=== PATIENT | male | born 1930 | race Caucasian/White ===

== ENCOUNTER 2019-01-13 06:16 | Observation (INO) | payer OTHER ==
[~2019-01-13] VITALS: Ht 182.9 cm; Wt 78.5 kg
[~2019-01-13 06:16] MED LIST: ACETAMINOPHEN325 MG PO; ACETAMINOPHEN650 M5 PO; BENADRYL25 MG PO; DIPHENHYDRAMINE25 M3 PO; METOPROLOL SUCC25 M1 PO; PROSCAR 5MG TABL5 M1 PO; XARELTO15 MG PO; XARELTO20 MG PO; ZANTAC 150MG T150 M1 PO; ZESTRIL10 MG PO; ZESTRIL20 MG PO; ZOCOR 20 MG TAB20 M1 PO
[2019-01-13 06:55] VITALS: BP 154/86
[2019-01-13] MEDS ORDERED: PROTONIX40 M1 PO (07:03)
[2019-01-13 07:08] LABS: HEMATOCRIT 44.1 % (42.0-52.0); HEMOGLOBIN 15.1 gm/dL (14.0-18.0); MCH 33.2 pg (26.0-34.0); MCHC 34.2 g/dL (28.0-37.0); MCV 97.3 fL (80.0-100.0); PLATELET COUNT 142 thou/uL (150-400); RBC 4.53 mil/uL (4.50-6.00); RDW 14.3 % (10.5-14.5)
[2019-01-13 07:11] LABS: CALCIUM 9.9 mg/dL (8.5-10.1); POTASSIUM 4.4 mmol/L (3.5-5.1)
[2019-01-13 07:16] LABS: PROTIME 10.2 Seconds (9.3-11.4)
[2019-01-13 07:17] LABS: ALBUMIN 4.4 g/dL (3.4-5.0); TOTAL BILIRUBIN 1.1 mg/dL (<0.1-1.0); TOTAL PROTEIN 7.6 g/dL (6.4-8.2)
[2019-01-13 08:24] LABS: ABSOLUTE NEUTROPHILS 2.6 thou/uL (1.4-8.2); ANISOCYTOSIS SLIGHT
[2019-01-13 11:19] VITALS: BP 154/86
--- NOTE | 2019-01-13 11:32 | NUR ---
PT ORIENTED TO ROOM AND UNIT BED LOW AND LOCKED, SIDE RAILS UPX 3, CALL LIGHT IN REACH. PPM SITE ONLY SLIGHTLY OOZING RED BLOOD REINFORCE WITH 4X4. TELE APLLIED AND REVEAL PT IS AV PACED AT 60 BPM. PT WILL REMAIN HOB 45 DEGREES. WILL CONTINUE TO ASSESS.
--- NOTE | 2019-01-13 17:55 | NUR ---
PT UP TO BATHROOM SEVERAL TIMES AND UNABLE TO VOID. OBTAIN ORDER FOR DTRAIGHT CATH. WILL CONTINUE TO ASSESS.
[2019-01-13 21:04] VITALS: BP 121/63
[2019-01-13 23:55] VITALS: BP 143/89
[2019-01-14 04:00] VITALS: BP 133/85
--- NOTE | 2019-01-14 05:11 | NUR ---
PATIENT ALERT AND ORIENTED X4, NO COMPLAINTS OF PAIN. AV PACED ON PATENT EXAMINER. ON ROOM AIR, NO COMPLAINTS OF DIFFICULTY BREATHING. VOIDING PER URINAL. LEFT PACEMAKER SITE INTACT, SHOULDER IMMOBILIZER IN PLACE. AND PATIENT EDUCATED ON FALL PRECAUTIONS. NO SIGNS OF ACUTE DISTRESS NOTED AT THIS TIME. WILL CONTINUE TO MONITOR.
[2019-01-14 09:30] VITALS: BP 133/85
--- NOTE | 2019-01-14 10:50 | NUR ---
discharge instructions reviewed with patient and his /family. Peripheral IV's removed without complications. Incision intact. Amanda NOYOLA educated family on home device use.
[2019-01-14 11:36] VITALS: BP 133/85
--- NOTE | 2019-01-20 12:10 | P ---
[facility] [place] [address] PROCEDURE REPORT Name: ALEJANDRO ZAMAN Room #: 207-P [facility] Annelise Tovar#: [id number] Admission: 01/13/19 ������������������ Attend Phys: Willian Brewster MD Discharge: 01/14/19 ������������������ Date of : 32 Report #: [id number] THIS REPORT FOR: //name// CC: Liang Brewster BIVENTRICULAR PACEMAKER IMPLANTATION PREOPERATIVE DIAGNOSES: 1. Symptomatic bradycardia. 2. Sick sinus syndrome. 3. Left bundle-branch block. 4. Ejection fraction 40%. HISTORY: The patient is an 88-year-old male, with increased fatigue and shortness of breath, who has evidence of sick sinus syndrome as well as left bundle-branch block and a decreased ejection fraction of 40%. I anticipate 100% ventricular pacing and therefore, I have recommended that he undergo biventricular pacemaker implantation. ANESTHESIA: The patient underwent MAC anesthesia with no anesthesia related complications. DESCRIPTION OF PROCEDURE: The patient underwent informed consent. We discussed the details of the procedure including the risks, which include, but not limited to bleeding, infection, vascular damage, cardiac perforation and pneumothorax. He understood these risks and is willing to proceed. The patient was brought to the EP laboratory in fasting and unsedated state, prepped and draped in sterile fashion. A venogram was performed showing patency of the left axillary vein. The patient received IV antibiotics. Next, I injected lidocaine below the level of clavicle. Incision was made, pocket was created over the prepectoral fascia and access was obtained 3 times to the left axillary vein using the extrathoracic approach with sheath positioned in the modified Seldinger technique. Next, leads were positioned in the right ventricular apex, right atrial appendage both with adequate pacing and sensing thresholds. This leads were sutured to the prepectoral fascia. Next, a coronary sinus guide sheath was placed into the coronary sinus. This was achieved relatively easily. Venogram showed that he had a nice anterolateral branch. The LV lead was positioned into this branch. The most distal pacing configuration did have some phrenic nerve capture. Fortunately, the mid pacing configuration had no phrenic nerve capture and great pacing thresholds. The sheath was split and the lead remained in position. The lead was sutured to the prepectoral fascia. The device was connected to the leads and the pocket was irrigated with vancomycin and then closed in 2 layers with surgical glue placed to the outer skin layer. The patient awoke neurologically and hemodynamically intact. No complications and no significant bleeding. [facility] [address] [place] [address] PROCEDURE REPORT Name: ALEJANDRO ZAMAN Room #: 207-P [facility] Annelise HuongHuong#: [id number] Admission: 01/13/19 ������������������ Attend Phys: Willian Brewster MD Discharge: 01/14/19 ������������������ Date of : 32 Report #: [id number] The implanted device was a Medtronic model number W4DR01, serial number [id number]. The leads were all Medtronic. The atrial lead was a model number 5076, serial number [id number] with a P-wave of 1 millivolt, pacing impedance 475 ohms and a pacing threshold of 1.3 volts at 0.4 milliseconds. The RV lead was a model number 5076, serial number [id number]. This lead demonstrated a R-wave of 4.6 millivolts, pacing impedance of 703 ohms and pacing threshold 0.4 volts at 0.4 milliseconds. The LV lead was a [employer]genuitytronic model number 4598, 88 cm, serial number [id number]. The R waves were 4.3 millivolts, pacing impedance 513 ohms and the pacing threshold 0.5 volts at 0.4 milliseconds. The biventricular lead pacing configuration was LV2 to LV3. The device was programmed to the DDDR 60-130 mode. CONCLUSIONS: 1. Successful biventricular pacemaker implantation. 2. Satisfactory atrial, right ventricular and left ventricular pacing and sensing thresholds. ��������������������������������������������� <ELECTRONICALLY SIGNED> ���������������������������������������� By: Willian Brewster MD ��������������������������������������������� 01/20/19 1210 1508 0637 Willian Brewster MD /nt
== END 2019-01-14 11:21 | disposition home or self-care (01) ==
LOC: CATH 06:16 → 2N 10:59 → CATH 15:06 → ENTRNSPT 01-14 11:12 → EDTRNSPTSTS 01-14 11:21 → 2N 01-14 11:21
PROVIDERS: ADMIT Internal Medicine Cardiovascular Disease
DX: I49.5 Sick sinus syndrome (principal); I44.7 Left bundle-branch block, unspecified; I10 Essential (primary) hypertension; N40.0 Benign prostatic hyperplasia without lower urinary tract symptoms; M06.9 Rheumatoid arthritis, unspecified; I47.1 Supraventricular tachycardia; I25.10 Atherosclerotic heart disease of native coronary artery without angina pectoris; Z79.899 Other long term (current) drug therapy
CPT/HCPCS: 62110; 62900; 70005

== ENCOUNTER → 2019-04-15 | Outpatient (CLI) | payer OTHER ==
[~2019-04-15] MED LIST changes: +PROTONIX40 M1 PO
--- NOTE | 2019-04-15 14:14 | 2DMMODE ---
[facility] [place] [address] 2 D/M-MODE ECHOCARDIOGRAM Name: AUSTYNALEJANDRO E [facility] [id number] Admission: 04/15/19 Attend Phys: Rosalba Fortune Discharge: Date of : 32 Report #: [id number] THIS REPORT FOR: //name// APPROVED REPORT Study performed: 04/15/2019 11:30:22 EXAM: Comprehensive 2D, Doppler, and color-flow Echocardiogram Patient Location: Out-Patient Status: routine BSA: 2.00 HR: 79 bpm BP: 134/90 mmHg Rhythm: Pacemaker Other Information Study Quality: Good/low parasternal window Indications Pacemaker Hx: CAD, CM, arrhythmias, ablation. 2D Dimensions RVDd: 42.42 mm IVSd: 14.29 (7-11mm) LVOT Diam: 23.91 (18-24mm) LVDd: 47.53 mm PWd: 8.35 (7-11mm) LVDs: 39.25 (25-40mm) Aortic Root: 39.28 mm Volumes Left Atrial Volume (Systole) Single Plane 4CH: 59.64 mL Single Plane 2CH: 71.92 mL LA ESV Index: 35.00 mL/m2 Aortic Valve AoV Peak Jarvis.: 0.97 m/s AO Peak Gr.: 4.51 mmHg LVOT Max P.10 mmHg LVOT Max V: 0.72 m/s ARACELIS Vmax: 3.35 cm2 AI Vmax: 4.86 m/s AI [place]: 2.96 m/s2 AI PHT: 475.02 ms [facility] [place] [place] [address] 2 D/M-MODE ECHOCARDIOGRAM Name: ALEJANDRO ZAMAN Room #: REG [facility]#: [id number] Admission: 04/15/19 Attend Phys: Rosalba Fortune Discharge: Date of : 32 Report #: [id number] Mitral Valve E/A Ratio: 0.9 MV Decel. Time: 202.78 ms MV E Max Jarvis.: 0.61 m/s MV A Jarvis.: 0.68 m/s MV PHT: 58.81 ms IVRT: 93.43 ms Pulmonary Valve PV Peak Jarvis.: 0.89 m/s PV Peak Gr.: 3.20 mmHg Pulmonary Vein P Vein S: 0.48 m/s P Vein D: 0.29 m/s P Vein S/D Ratio: 1.66 Tricuspid Valve TR Peak Jarvis.: 2.56 m/s TR Peak Gr.: 26.29 mmHg Left Ventricle The left ventricle is normal size. Regional wall motion abnormalities are noted. Moderate basal septal hypertrophy is present. Left ventricular systolic function is moderately decreased. LVEF is 35-40%. Mild diastolic dysfunction is present (impaired relaxation pattern). Right Ventricle Right ventricle is at the upper limits of normal. Right ventricle is mildly hypokinetic. Pacemaker lead is present in the right ventricle. Atria Left atrium is mildly dilated. Right atrium is mildly dilated. Aortic Valve The aortic valve is normal in structure; mildly calcified. Mild to moderate aortic regurgitation. There is no aortic valvular stenosis. Mitral Valve Mitral valve leaflets are mildly thickened. At least moderate mitral regurgitation; eccentric jet. Tricuspid Valve The tricuspid valve is normal in structure. Mild tricuspid [facility] [place] [place] [address] 2 D/M-MODE ECHOCARDIOGRAM Name: AUSTYNALEJANDRO E Room #: PHOEBE Tovar#: [id number] Admission: 04/15/19 Attend Phys: Rosalba Fortune Discharge: Date of : 32 Report #: [id number] regurgitation. Estimated PAP is 26mmHg plus the right atrial pressure. Pulmonic Valve The pulmonary valve is normal in structure. Trace pulmonic regurgitation. Great Vessels Aortic root is mildly dilated. Ascending aorta is not well visualized. IVC is not well visualized. Pericardium There is no pericardial effusion. <Conclusion> The left ventricle is normal size. LVEF is 35-40%. Regional wall motion abnormalities are noted. Right ventricle is mildly hypokinetic. Pacemaker lead is present in the right ventricle. Left atrium is mildly dilated. Right atrium is mildly dilated. The aortic valve is normal in structure; mildly calcified. Mild to moderate aortic regurgitation. Mitral valve leaflets are mildly thickened. At least moderate mitral regurgitation; eccentric jet. The tricuspid valve is normal in structure. Mild tricuspid regurgitation. Estimated PAP is 26mmHg plus the right atrial pressure. The pulmonary valve is normal in structure. Trace pulmonic regurgitation. Aortic root is mildly dilated. There is no pericardial effusion. <ELECTRONICALLY SIGNED> By: Dru Gary MD 04/15/19 1414 1414 141 Dru Gary MD /INF
== END ==
LOC: CV 11:03
DX: I08.3 Combined rheumatic disorders of mitral, aortic and tricuspid valves (principal); I25.10 Atherosclerotic heart disease of native coronary artery without angina pectoris; I42.9 Cardiomyopathy, unspecified; Z88.2 Allergy status to sulfonamides

== ENCOUNTER 2021-01-05 23:44 | Inpatient (IN) | payer OTHER ==
[~2021-01-05] VITALS: Ht 188 cm; Wt 72.6 kg
--- NOTE | ~2021-01-05 | O ---
[facility] [place] [address] OPERATIVE REPORT Name: ALEJANDRO ZAMAN Room #: 200-I ADM IN M.R.#: [id number] Admission: 01/06/21 Attend Phys: Jacobo Hartman MD Discharge: Date of : 32 Report #: [id number] THIS REPORT FOR: cc: Liang Ojeda James L. DO Patterson,Ej Garcia MD ~ DATE OF SERVICE: 01/10/2021 PREOPERATIVE DIAGNOSIS: Lymphoma. POSTOPERATIVE DIAGNOSIS: Lymphoma. OPERATION: 1. Right internal jugular vein Port-A-Cath. 2. Ultrasound guidance for right internal jugular vein Port-A-Cath. 3. Fluoroscopic interpretation for Port-A-Cath. SURGEON: Ej Rose MD ANESTHESIA: General. ESTIMATED BLOOD LOSS: Minimal. SPECIMENS: None. DESCRIPTION OF PROCEDURE: After informed consent was obtained, the patient was brought to the operating room and placed supine. SCDs were placed and working, preoperative antibiotics were administered, general anesthesia was induced. The right neck and chest were prepped and draped in the usual sterile fashion. The right internal jugular vein was evaluated with ultrasound. It was normal in size. There was no thrombus. Right internal jugular vein was cannulated under direct vision. A wire was placed. A 2 cm incision was made in the right chest. Dissection was carried down to the fascia. The catheter was then tunneled from the chest site to the neck site. Dilator with a sheath was placed. Catheter was then placed into the sheath as the sheath was peeled away. Catheter was then pulled back to 26.5 cm. It was cut and then it was connected to the reservoir. Beacon was secured to the underlying fascia with a 2-0 Prolene stitch. The skin was then closed with 4-0 Monocryl. Placement of the wire and dilator in the SVC was confirmed with fluoroscopy. The incisions were dressed with Steri-Strips and gauze. Sterile dressings were applied. [address] [address] OPERATIVE REPORT Name: AUSTYNALEJANDRO Giovanny Room #: 200-I [facility].#: [id number] Admission: 01/06/21 Attend Phys: Jacobo Hartman MD Discharge: Date of : 32 Report #: [id number] COMPLICATIONS: None. DISPOSITION: The patient was taken to recovery in satisfactory condition. By: [id number] Ej Rose MD /nt
[2021-01-06 00:13] VITALS: BP 123/88
--- NOTE | 2021-01-06 00:14 | NUR ---
PT IS AN ADMIT FROM [facility] HAS A HISTORY OF LYOMPHOMA CANCER. NOT MUCH OF AN APETETE HE REPORTS LATELY. SKIN IS INTACT PALE NO WOUNDS NOTED UPON SKIN ASSESSMENT. HE IS PLEANASANT AND KIND WISHES TO BE A NO CODE HE REPORTED AT THIS TIME. HE REPORTS THAT THE CHEMO DRUG THEY HAVE BEEN USING IS HARD ON HIS BODY. I SAID SOMETIMES ITS LIKE THAT WITH CHEMO DRUNGS FOR TREATMENT. WILL CONTINUE TO MONITOR AND ASSESS PER NURSING.
[2021-01-06 04:18] VITALS: BP 116/85
[2021-01-06 04:31] LABS: HEMATOCRIT 38.4 % (42.0-52.0); HEMOGLOBIN 12.6 gm/dL (14.0-18.0); MCH 33.7 pg (26.0-34.0); MCHC 32.8 g/dL (28.0-37.0); MCV 102.5 fL (80.0-100.0); RBC 3.75 mil/uL (4.50-6.00); RDW 19.2 % (10.5-14.5); WBC 37.2 thou/uL (4.0-11.0)
[2021-01-06 04:36] LABS: CREATININE 1.2 mg/dL (0.7-1.3); MAGNESIUM 2.1 mg/dL (1.8-2.4); POTASSIUM 4.9 mmol/L (3.5-5.1)
[2021-01-06 07:59] VITALS: BP 120/86
--- NOTE | 2021-01-06 10:52 | 2DMMODE ---
[facility] [place] [address] 2 D/M-MODE ECHOCARDIOGRAM Name: ALEJANDRO ZAMAN Room #: 200-I ADM IN M.R.#: [id number] Admission: 01/06/21 Attend Phys: Jacobo Hartman MD Discharge: Date of : 32 Report #: [id number] THIS REPORT FOR: cc: Liang Ojeda James L. DO Park, Jin S. MD ~ APPROVED REPORT Study performed: 01/06/2021 09:11:20 EXAM: Comprehensive 2D, Doppler, and color-flow Echocardiogram Patient Location: Bedside Room #: 200 Status: on-call BSA: 1.99 HR: 100 bpm BP: 120/86 mmHg Rhythm: Irregular/LBBB Other Information Study Quality: Adequate Technically limited study due to patient sitting up in bed, coughing, thin body habitus.. Indications Short of breath, palpitations, Afib. Hx: Non-obstructive CAD, Pacemaker 2D Dimensions IVSd: 15.50 (7-11mm) LVOT Diam: 21.78 (18-24mm) LVDd: 49.70 mm PWd: 8.64 (7-11mm) LVDs: 42.87 (25-40mm) Left Atrium: 40.33 (27-40mm) Aortic Root: 37.99 mm Aortic Valve AoV Peak Jarvis.: 1.06 m/s AO Peak Gr.: 4.52 mmHg LVOT Max P.95 mmHg LVOT Max V: 0.70 m/s ARACELIS Vmax: 2.44 cm2 Tricuspid Valve TR Peak Jarvis.: 2.84 m/s [facility] [address] [place] [address] 2 D/M-MODE ECHOCARDIOGRAM Name: ALEJANDRO ZAMAN Room #: 200-I [facility]#: [id number] Admission: 01/06/21 Attend Phys: Jacobo Hartman MD Discharge: Date of : 32 Report #: [id number] Peak Gr.: 32.16 mmHg Left Ventricle The left ventricle is normal size. Moderate basal septal hypertrophy is present. Left ventricular systolic function is severely decreased. LVEF is 25-30%. This study is not technically sufficient to allow evaluation of the LV diastolic function. Right Ventricle The right ventricle is normal size. The right ventricular systolic function is normal. Pacemaker lead is present in the right ventricle. Atria Left atrium is mildly dilated. The right atrium size is normal. Aortic Valve The Aortic valve is sclerotic. Mild to moderate aortic regurgitation. There is no aortic valvular stenosis. Mitral Valve The mitral valve is normal in structure. Severe mitral regurgitation. Tricuspid Valve The tricuspid valve is normal in structure. Moderate tricuspid regurgitation. Estimated PAP is 32mmHg plus the right atrial pressure. Pulmonic Valve Pulmonic valve is not well visualized. Trace pulmonic regurgitation. Great Vessels Aortic root is borderline dilated. Ascending aorta is not well visualized. IVC is poorly visualized. Pericardium There is no pericardial effusion. <Conclusion> The left ventricle is normal size. Left ventricular systolic function is severely decreased. The right ventricle is normal size. Pacemaker lead is present in the right ventricle. Left atrium is mildly dilated. [facility] [address] [place] [address] 2 D/M-MODE ECHOCARDIOGRAM Name: ALEJANDRO ZAMAN Room #: 200-I ADM IN [facility]#: [id number] Admission: 01/06/21 Attend Phys: Jacobo Hartman MD Discharge: Date of : 32 Report #: [id number] The Aortic valve is sclerotic. Mild to moderate aortic regurgitation. Severe mitral regurgitation. Moderate tricuspid regurgitation. Estimated PAP is 32mmHg plus the right atrial pressure. <ELECTRONICALLY SIGNED> By: Karthikeyan Downey MD 01/06/21 105 50 50 Karthikeyan Downey MD /INF
--- NOTE | 2021-01-06 11:02 | EKG ---
[address] [address] ELECTROCARDIOGRAM REPORT Name: ALEJANDRO ZAMAN Room #: 200-I ADM IN M.R.#: [id number] Admission: 01/06/21 Attend Phys: Jacobo Hartman MD Discharge: Date of : 32 Report #: [id number] [facility] Test Date: 2021-01-06 Test Time: 02:32:09 Pat Name: ALEJANDRO ZAMAN Department: Room: 200 I Gender: M Lead Bi Developer: SUNNY MERCADO RN : 1930 Requested By: Karyna Katz Order Number: [id number] MD: Karthikeyan Downey Measurements Intervals [place] Rate: 110 P: AK: QRS: -27 QRSD: 153 T: 137 QT: 394 QTc: 534 Interpretive Statements Atrial fibrillation Left bundle branch block Compared to ECG 10/13/2013 13:50:25 Sinus rhythm no longer present Left-axis deviation no longer present Electronically Signed On 01-06-2021 11:02:16 CDT by Karthikeyan Downey [email or web address] <ELECTRONICALLY SIGNED> By: Karthikeyan Downey MD 01/06/21 1102 1 0232 MD IMELDA Sutton
[2021-01-06 12:01] VITALS: BP 138/80
--- NOTE | 2021-01-06 14:47 | NUR ---
INFORM DR. LOMAS THAT ONCOLOGY WOULD LIKE A IMPLANTED PORT PLACED BEFORE PT LEAVES HOSPITAL.
--- NOTE | 2021-01-06 16:04 | NUR ---
ONCOLOGY AND CARDIOLOGY CONSULT TODAY. PT TAKING IN GOOD PO AND DENIES PAIN. ADMINISTRATION OK FOR SPOUSE TO SPEND NIGHT.
[2021-01-06 16:27] VITALS: BP 107/71
[2021-01-06 19:04] VITALS: BP 98/69
--- NOTE | 2021-01-06 19:43 | NUR ---
set bed alarm for the evining with spouse speniding night.
[2021-01-07 03:13] VITALS: BP 121/84
[2021-01-07 07:10] VITALS: BP 130/90
--- NOTE | 2021-01-07 08:07 | NUR ---
PT DENIED CHEST PAIN OR PALPITATIONS, OR LIGHTHEADEDNESS. CONTINUED TO HAVE INTERMIT TELE ALARMS FOR HIGH RATE OR VTACH WHEN PACER SPIKES DIDN'T FIRE. NO OTHER CONCERNS, PT STABLE AT SHIFT CHANGE.
--- NOTE | 2021-01-07 10:57 | EKG ---
[place] [address] [employer] [place] [address] ELECTROCARDIOGRAM REPORT Name: ALEJANDRO ZAMAN Room #: 200-I ADM IN M.R.#: [id number] Admission: 01/06/21 Attend Phys: Jacobo Hartman MD Discharge: Date of : 32 Report #: [id number] [facility] Test Date: 2021-01-07 Test Time: 08:11:27 Pat Name: ALEJANDRO ZAMAN Department: Room: 200 I Gender: M Ct Scan Technician: WALESKA : 1930 Requested By: Jacobo Hartman Order Number: [id number] MD: Karthikeyan Downey Measurements Intervals [place] Rate: 132 P: 0 AL: QRS: -28 QRSD: 149 T: 141 QT: 376 QTc: 557 Interpretive Statements Atrial fibrillation with demand ventricular pacing No further rhythm analysis attempted due to paced rhythm Left bundle branch block Compared to ECG 01/06/2021 02:32:09 Atrial fibrillation no longer present Electronically Signed On 01-07-2021 10:57:52 CDT by Karthikeyan Downey [email or web address] <ELECTRONICALLY SIGNED> By: Karthikeyan Downey MD 01/07/21 1057 0 0 Karthikeyan Downey MD /ANGELINA
[2021-01-07 11:12] VITALS: BP 99/72
[2021-01-07 16:03] VITALS: BP 100/67
--- NOTE | 2021-01-07 18:22 | NUR ---
PT ALERT AND ORIENTED. SEEN BY DR. RAMIREZ. NEW ORDERS NOTED. PT DENIED ANY PAIN OR DISCOMFORT. NO CONCERNS AT THIS TIME.
[2021-01-07 19:31] VITALS: BP 117/68
[2021-01-07 23:58] VITALS: BP 119/82
[2021-01-08 03:16] LABS: HEMOGLOBIN 12.4 gm/dL (14.0-18.0); MCH 33.9 pg (26.0-34.0); RBC 3.65 mil/uL (4.50-6.00)
[2021-01-08 03:18] LABS: CALCIUM 8.5 mg/dL (8.5-10.1); CREATININE 1.3 mg/dL (0.7-1.3); POTASSIUM 3.8 mmol/L (3.5-5.1)
[2021-01-08 03:19] LABS: HEMATOCRIT 36.9 % (42.0-52.0); MCHC 33.6 g/dL (28.0-37.0)
[2021-01-08 03:26] LABS: WBC 41.8 thou/uL (4.0-11.0)
[2021-01-08 04:43] VITALS: BP 1125/69; BP 125/69
[2021-01-08 07:10] VITALS: BP 119/78
--- NOTE | 2021-01-08 07:30 | NUR ---
ASSUMED CARE OF PT AT 1900, PT A/O X 4. ASSESSMENT COMPLETED NOTED. PT DENIES CP, SOA, OR DIZZINESS. WILL CONTINUE TO WORK TOWARDS POC T/O SHIFT.
--- NOTE | 2021-01-08 07:31 | NUR ---
Assumed care of this patient from the night nurse.
[2021-01-08 11:00] VITALS: BP 85/56
--- NOTE | 2021-01-08 12:01 | NUR ---
INITIAL ASSESSMENT: SW reviewed chart and spoke with attending physician. Pt was transferred to [facility] from [facility] due to chest pain. Cardiology consulted. Pt is on IV lasix and plan is for pt to have a cardiac cath tomorrow morning. 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 SW met with pt and at bedside. Introduced role of SW. Pt is alert/orientated x 4. Pt and spouse live in their home near [place]. 3 steps to enter from the backyard. No steps inside. Prior to admission, pt was independent with ADLs. No use of DME. No hx of HH services or post-acute placement. Pt's PCP is Dr. Varinder Shin in [place]. Pt and spouse deny having any needs at time of discharge. PT/OT evals ordered today to assist with recommendations for discharge needs. Plan is for pt to discharge home. SW is following to assist as needed with discharge planning.
[2021-01-08 15:30] VITALS: BP 88/59
--- NOTE | 2021-01-08 18:11 | NUR ---
PATIENT IS SLOWLY PROGRESSING TOWARDS OUTCOME GOALS HE WAS EVALUATED BY OT AND PT TODAY AND AMBULATED AROUND THE UNIT. PATIENT AND EDUCATION ON CARDIAC CATH FOR TOMORROW. QUESTIONS ADDRESSED AND REASSURANCE GIVEN.
[2021-01-08 19:12] VITALS: BP 114/79
[2021-01-09] VITALS (11 sets, daily range): BP systolic 87–114; BP diastolic 53–81
[2021-01-09 09:05] LABS: BE(vivo) -0.3 mmol/L (-2 to +3); HCO3 24.1 mmol/L (22.0-26.0); PCO2 38.4 mmHg (35.0-45.0); PO2 88.6 mmHg (80.0-100.0); pH 7.415 (7.360-7.450); sO2 96.9 % (92.0-98.0)
[2021-01-09 09:05] LABS: BE(vivo) -0.4 mmol/L (-2 to +3); HCO3 23.9 mmol/L (22.0-26.0); PCO2 VENOUS 37.9 mmHg (41.0-51.0); PO2 VENOUS 29.3 mmHg (35.0-45.0)
--- NOTE | 2021-01-09 10:59 | NUR ---
SW reviewed chart and spoke with nursing and attending physician. Pt had cardiac cath this morning. Anticipate pt will be ready to discharge home tomorrow. Therapy to work with pt again prior to discharge. Plan is for pt to discharge home when medically stable. CONNIE is following to assist as needed with discharge planning.
[2021-01-09 16:03] LABS: INR 1.05; PROTIME 11.4 Seconds (10.5-12.1)
--- NOTE | 2021-01-09 16:15 | CATHLAB ---
[facility] [place] [address] INVASIVE PROCEDURE REPORT Name: ALEJANDRO ZAMAN Room #: 200-I ADM IN .R.#: [id number] Admission: 01/06/21 Attend Phys: Jacobo Hartman MD Discharge: Date of : 32 Report #: [id number] THIS REPORT FOR: cc: Liang Ojeda James L. DO Park, Jin S. MD ~ APPROVED REPORT Study performed: 01/09/2021 08:02:57 Patient Details Patient Status: In-Patient Room #: 200 The patient is a 89 year-old male Event Personnel Karthikeyan Downey Draw String Knotter, Demetris Mejia RTR Monitor, Natasha Castillo RTR Scrub, Layla Rose RN therapeutic case manager Performed Art Access - R femoral artery* Casper Access - R femoral vein Hemostasis with Manual pressure 50689 Initial Mod Sed Same Phys/QHP Gr5y 111658 16854 Mod Sed Same Phys/QHP Ea [id number] Right and Left Heart Cath w/or w/o Coronarie [id number] [facility] Indication CHF Current Status: , Atrial fibrillation, Cardiomyopathy, Valvular heart disease Risk Factors Hypercholesterolemia, Coronary Artery DiseaseHypertension Procedure Narrative The Right Groin^ was infiltrated with 1% Lidocaine subcutaneous anesthesia. A PINNACLE 4FR Sheath #[id number] sheath was inserted into the RFA^. Coronary angiography was performed using coronary diagnostic catheters. The right coronary system was accessed and visualized with a JR4 catheter. The left coronary system was accessed and visualized with a JL5 catheter. The left ventricle was accessed and visualized with a PIGTAIL catheter. Left ventricular/Aortic Valve gradient assessed via catheter pullback. Left ventriculogram was performed in 30 degree projection. Hemostasis was obtained with manual pressure following sheath removal without any complications. The patient tolerated the procedure well and there were no complications associated with the procedure. There was no hematoma. A [facility] [place] [address] INVASIVE PROCEDURE REPORT Name: AUSTYNALEJANDRO Giovanny Room #: 200-I [facility] IN ..#: [id number] Admission: 01/06/21 Attend Phys: Jacobo Hartman MD Discharge: Date of : 32 Report #: [id number] Oklee sheath was inserted into the RFV. A [place] catheter was inserted and right heart pressures were obtained. Intraoperative Conscious Sedation Sedation start time: 837 Case end Time: 931 Fentanyl 25 mcg Versed 0.5 mg Fluoro Time: 5.50 minutes Dose: DAP 6390.60 cGycm2 732 mGy Contrast Type and Amount: Visipaque 75 ml Coronary Angiography The patient's coronary anatomy is right dominant. Diagnostic Cath Left Main The left main artery is a large-caliber vessel, patent with no flow-limiting lesions. LAD The LAD is a moderate-sized caliber vessel, traverses the anterior wall and wraps around the apex. There is mild disease in the proximal segment, 20%. Diagonal 1 This is a moderate-sized caliber vessel, patent with no flow-limiting lesions. Circumflex The left circumflex artery is a moderate-sized caliber vessel with mild diffuse disease proximally, 20%. OM1 This is a moderate-sized caliber vessel, patent with no flow-limiting lesions. OM2 This is a moderate-sized caliber vessel, patent with no flow-limiting lesions. Right Coronary The RCA is a moderate-sized caliber vessel, with mild disease in the midsegment, 20%. R PDA This is a small to moderate-sized caliber vessel, patent with no flow-limiting lesions. RPLV This is a small to moderate-sized caliber vessel, patent with no flow-limiting lesions. Left Ventriculography The left ventricle is mildly dilated in size with Decreased contractility. The left ventricular ejection fraction is estimated to be 25-30%. Hemodynamics The right atrial mean pressure is 6 mmHg. The right ventricular pressure is 19/2 mmHg. The pulmonary artery pressure is 18/6 mmHg with a mean of 12 mmHg. The mean pulmonary capillary wedge pressure is 5 mmHg. The aortic pressure is 89/38 mmHg with a mean of 54 mmHg. [facility] [address] [place] [address] INVASIVE PROCEDURE REPORT Name: ALEJANDRO ZAMAN Giovanny Room #: 200-I ADM IN M.R.#: [id number] Admission: 01/06/21 Attend Phys: Jacobo Hartman MD Discharge: Date of : 32 Report #: [id number] The left ventricular pressure is 83/5 mmHg with a mean of mmHg. The left ventricular end diastolic pressure is 6 mmHg. Pullback from the left ventricle to the aorta revealed a mm gradient across the aortic valve. PaO2 saturation is 63.10 %. Arterial saturation is 95.20 %. The cardiac output using the Willie method is 4.45 L/min. The cardiac index using the Willie method is 2.30 L/min/m2. Conclusion 1. There is mild, nonobstructive disease in the epicardial vessels. 2. There is severe global LV dysfunction. 3. Right-sided cardiac pressures as listed. 4. Recommend guideline directed medical therapy. <ELECTRONICALLY SIGNED> By: Karthikeyan Downey MD 01/09/21 1615 1615 1615 Karthikeyan Downey MD /INF
--- NOTE | 2021-01-09 18:33 | NUR ---
PT IS AXOX4, PLEASANT; VSS, AFEBRILE, VPACED ON MONITOR. PT WENT TO [employer] SUPERINTENDENT IN AM; NO INTERVENTIONS COMPLETED. DR REILLY CONSULTED, DR RICHARD CONSULTED. PT TO HAVE PORTACATH PLACED IN AM. PT DENIES PAIN. R GROIN DRY AND INTACT, WITH SMALL SPOT, CIRCLED, STAYED THE SAME SIZE THROUGHOUT AFTERNOON. CONSENT FOR PROCEDURE IN CHART. FALL PRECAUTIONS IN PLACE. NO CONCERNS AT THIS TIME.
[2021-01-10 04:13] VITALS: BP 122/75
[2021-01-10 04:28] LABS: CALCIUM 8.8 mg/dL (8.5-10.1); CREATININE 1.1 mg/dL (0.7-1.3); POTASSIUM 4.5 mmol/L (3.5-5.1)
[2021-01-10 04:34] LABS: RBC 3.95 mil/uL (4.50-6.00)
[2021-01-10 04:36] LABS: HEMATOCRIT 39.9 % (42.0-52.0); HEMOGLOBIN 13.6 gm/dL (14.0-18.0); MCH 34.4 pg (26.0-34.0); MCHC 34.1 g/dL (28.0-37.0); MCV 100.8 fL (80.0-100.0); RDW 18.1 % (10.5-14.5)
--- NOTE | 2021-01-10 05:23 | NUR ---
patients cares were assumed at shift change. patient was assessed and meds were passed. call that wbc is still critical however continues in a downward trend. patient is npo for a portacath placement this morning. patiet continues to progress towads discharge. rounds were done. remains at the bedside.
[2021-01-10 09:31] VITALS: BP 145/84
[2021-01-10 11:20] VITALS: BP 90/64
[2021-01-10 15:25] VITALS: BP 105/75
--- NOTE | 2021-01-10 18:11 | NUR ---
PATIENT PROGRESSING TOWARDS DISMISSAL GOALS. PATIENT NPO AT MIDNIGHT. PATIENT SPOUSE AT BEDSIDE DURING THE DAY. ISABELLA CATH PLACED THIS MORNING. VSS.
[2021-01-10 20:11] VITALS: BP 110/67
[2021-01-11 04:45] VITALS: BP 119/68
--- NOTE | 2021-01-11 05:49 | NUR ---
Pt. rested quietly during the night when checked on during frequent rounds. He offer no c/o shortness of air or chest pain.
[2021-01-11] MEDS ORDERED: PACERONE 200 M200 M1 PO (09:00)
[2021-01-11] MEDS ORDERED: ATENOLOL 50MG T50 MG PO (09:00)
[2021-01-11] MEDS ORDERED: XARELTO20 MG PO (09:00)
[2021-01-11] MEDS ORDERED: CARVEDILOL12.5 MG PO (09:06)
--- NOTE | 2021-01-11 09:19 | NUR ---
0872-PT WAS BROUGHT DOWN TO CV HOLDING AREA, TIME OUT TAKEN WITH . PT VSS THROUGHOUT PROCEDURE, PT SEDATED WITHOUT COMPLICATION, MINIMAL SUCTION NEEDED. BUBBLE STUDY DONE AND PT SHOCKED AT 75J X1 AND NSR PRESENT POST PROCEDURE. [employer] REP AT BS TO CHECK DEVICE PRE AND POST PROCEDURE. PT REMAINS SEDATED, VSS. WILL CONTINUE TO MONITOR PT UNTIL AWAKE AND THEN RETURN PT TO ROOM. REMAINED IN PTS ROOM DURING PROCEDURE.
--- NOTE | 2021-01-11 10:02 | TEE ---
[facility] [place] [address] TRANSESOPHAGEAL ECHOCARDIOGRAM Name: ALEJANDRO ZAMAN Room #: 200-I ADM IN M.R.#: [id number] Admission: 01/06/21 Attend Phys: Jacobo Hartman MD Discharge: Date of : 32 Report #: [id number] THIS REPORT FOR: cc: Liang Ojeda James L. DO Santiago, Patrick MD [facility] ~ APPROVED REPORT Study performed: 01/11/2021 08:48:52 EXAM: Comprehensive 2D, Doppler, and color-flow Echocardiogram Patient Location: In-Patient Room #: 200 Status: routine BSA: 1.97 HR: 86 bpm BP: 122/76 mmHg Rhythm: Atrial Fibrillation Other Information Study Quality: Good Indications Atrial Fibrillation Echo Enhancing Agent Indication: Rule out Shunt Agent(s) / Amount(s) Used: Agitated Saline 7 cc Procedure After obtaining informed consent, patient underwent transesophageal echo in the [employer]. Type of Sedation : Conscious Sedation Sedation was administered by Nurse. Sedation start time: 0900 Case end Time: 907 Sedation was achieved intravenously with: Versed (3.5 mg) Fentanyl (50 mcg) Transesophageal probe was inserted and advanced into esophagus without difficulty by Prashant Henderson MD. Echo enhancement indication: R/O Septal defect. Echo enhancement agent administered: Agitated Saline The SERA was performed without complications. Synchronized Cardioversion acheived with 75 Joules after 1 [facility] [address] [address] TRANSESOPHAGEAL ECHOCARDIOGRAM Name: ALEJANDRO ZAMAN Room #: 200-I ADM IN M.R.#: [id number] Admission: 01/06/21 Attend Phys: Jacobo Hartman MD Discharge: Date of : 32 Report #: [id number] attempt(s). Rhythm following Synchronized Cardioversion: Normal Sinus Rhythm Throughout the procedure, the blood pressure, pulse oximetry, cardiac rhythm, and rate were monitored. The patient tolerated the procedure without adverse effects. Recovery from conscious sedation was uneventful and vital signs were stable. Left Ventricle The left ventricle is normal size. There is normal left ventricular wall thickness. Left ventricular ejection fraction is severely decreased. LVEF is 25-30%. Right Ventricle The right ventricle is normal size. The right ventricular systolic function is normal. Pacemaker lead is present in the right ventricle. Atria Left atrium is dilated. Interatrial septum is intact without evidence of ASD or PFO. The right atrium size is normal. Pacemaker lead is present in the right atrium. Aortic Valve The aortic valve is normal in structure. Mild aortic regurgitation. There is no aortic valvular stenosis. Mitral Valve The mitral valve is normal in structure. Mild mitral regurgitation. No evidence of mitral valve stenosis. Tricuspid Valve The tricuspid valve is normal in structure. Pulmonic Valve The pulmonary valve is normal in structure. Great Vessels The aortic root is normal in size. Pericardium There is no pericardial effusion. <Conclusion> Timeout performed Device was interrogated by the [employer] rep and indeed he remains in atrial fibrillation [facility] [address] [place] [address] TRANSESOPHAGEAL ECHOCARDIOGRAM Name: ALEJANDRO ZAMAN Room #: 200-I ADM IN ..#: [id number] Admission: 01/06/21 Attend Phys: Jacobo Hartman MD Discharge: Date of : 32 Report #: [id number] Esophageal probe was advanced without difficulty after appropriate sedation Left atrial appendage, moderate size, no obvious mass or clot detected Normal left ventricle size//wall thickness Global hypokinesis ejection fraction 20-25% Moderate left atrial enlargement Pacer wire detected in the right ventricle Mild mitral/aortic valve insufficiency No tricuspid valve insufficiency detected No evidence of ASD/VSD by color flow/bubble study Patient was cardioverted to sinus rhythm after 75 J/ biphasic mode Device was interrogated post cardioversion indeed is in sinus rhythm Patient tolerated the procedure well <ELECTRONICALLY SIGNED> By: Prashant Henderson MD, FACC 01/11/21 1002 1002 1002 Prashant Henderson MD, FACC /INF
[2021-01-11 11:30] VITALS: BP 97/52
[2021-01-11 12:02] VITALS: BP 119/68
--- NOTE | 2021-01-11 14:02 | NUR ---
ASSESSMENT CHARTED - MEDS PER LIA - NICOLAS DIET AND FLUIDS. NO CO'S OF PAIN OR NASUEA. PT HAD SERA AND CARDIOVERSION DONE THIS AM. PT AV PACED ON RETURN TO THE UNIT. PT UP AD TC ON THE UNIT. HOME THIS AFTERNOON. INSTRUCTION RE HOME MEDS/ CARE AND FOLLOW UP GIVEN TO PT AND SPOUSE - STATED UNDERSTANDING OF INSTRUCTION GIVEN. PT LEFT UNIT VIA WHEELCHAIR - HOME VIA PVT VEHICLE ACCOMAPANIED BY AND DAUGHTER. NO CO'S AT TIME OF D/C.
== END 2021-01-11 13:30 | disposition home or self-care (01) | DRG 286 ==
LOC: 2N 23:44
PROVIDERS: Internal Medicine Cardiovascular Disease; Nurse Practitioner Family; Surgery; ADMIT Hospitalist; ATTEND Hospitalist
DX: I13.0 Hypertensive heart and chronic kidney disease with heart failure and stage 1 through stage 4 chronic kidney disease, or unspecified chronic kidney disease (principal); J96.01 Acute respiratory failure with hypoxia; I50.23 Acute on chronic systolic (congestive) heart failure; E43 Unspecified severe protein-calorie malnutrition; I48.20 Chronic atrial fibrillation, unspecified; C91.10 Chronic lymphocytic leukemia of B-cell type not having achieved remission; I47.1 Supraventricular tachycardia; I42.8 Other cardiomyopathies; N18.9 Chronic kidney disease, unspecified; I25.10 Atherosclerotic heart disease of native coronary artery without angina pectoris; N40.0 Benign prostatic hyperplasia without lower urinary tract symptoms; E78.5 Hyperlipidemia, unspecified; K21.9 Gastro-esophageal reflux disease without esophagitis; Z66 Do not resuscitate; M06.9 Rheumatoid arthritis, unspecified; I49.5 Sick sinus syndrome; K59.00 Constipation, unspecified; I34.0 Nonrheumatic mitral (valve) insufficiency; I49.3 Ventricular premature depolarization; R53.81 Other malaise; R63.4 Abnormal weight loss; Z68.20 Body mass index [BMI] 20.0-20.9, adult; Z79.01 Long term (current) use of anticoagulants; Z95.0 Presence of cardiac pacemaker; Z82.49 Family history of ischemic heart disease and other diseases of the circulatory system; Z80.0 Family history of malignant neoplasm of digestive organs; Z88.2 Allergy status to sulfonamides; Z98.42 Cataract extraction status, left eye; Z98.41 Cataract extraction status, right eye; Z90.49 Acquired absence of other specified parts of digestive tract; Z86.718 Personal history of other venous thrombosis and embolism; Z86.711 Personal history of pulmonary embolism; Z79.899 Other long term (current) drug therapy
CPT/HCPCS: 10081; 50010; 50101; 50386; 50403; 51938; 53358; 56524; 56525; 56526; 62110; 62900; 70005

== ENCOUNTER → 2021-01-18 | Outpatient (CLI) | payer OTHER ==
[~2021-01-18] MED LIST changes: +ATENOLOL 50MG T50 MG PO; +CARVEDILOL12.5 MG PO; +PACERONE 200 M200 M1 PO
== END ==
LOC: SJCVC 09:17
PROVIDERS: ATTEND Internal Medicine Cardiovascular Disease
DX: I42.8 Other cardiomyopathies (principal); I48.0 Paroxysmal atrial fibrillation; I34.0 Nonrheumatic mitral (valve) insufficiency; I47.1 Supraventricular tachycardia; I25.10 Atherosclerotic heart disease of native coronary artery without angina pectoris; N40.0 Benign prostatic hyperplasia without lower urinary tract symptoms; M06.9 Rheumatoid arthritis, unspecified; Z98.890 Other specified postprocedural states; Z88.2 Allergy status to sulfonamides; Z79.899 Other long term (current) drug therapy; Z86.718 Personal history of other venous thrombosis and embolism; Z82.49 Family history of ischemic heart disease and other diseases of the circulatory system